=== PATIENT | female | born 1965 | race Caucasian/White ===

== ENCOUNTER 2021-12-20 15:14 | Observation (INO) ==
--- NOTE | 2021-12-20 15:40 | Emergency Department Note ---
Abdominal Pain HPI General Chief Complaint: Abdominal Pain Stated Complaint: Gall Bladder Time Seen by Provider: 12/20/21 15:23 Source: patient Mode of arrival: ambulatory Limitations: no limitations History of Present Illness HPI Narrative: Narrative: 56-year-old female with a history of migraines, hyperlipidemia, heartburn, depression and recent epigastric pain with nausea and vomiting for 3 days presents the ER to be evaluated for cholecystitis. She was seen at the urgent care and had imaging performed and consulted Dr. Peralta who accepted her for evaluation and possible surgery. She is passing through the ER to be evaluated for surgery. She is already have lab work. She denies fever, chills or body aches at this time. Related Data Home Medications Medication Instructions Recorded Confirmed oqieaih-zvqqsenfwygsj-okmxewlu 250 1 tab PO ONCE 08/28/15 10/09/17 mg-250 mg-65 mg tablet (Migraine Relief) ibuprofen 200 mg tablet 800 mg PO ONCE 08/28/15 10/09/17 Previous Rx's Medication Instructions Recorded hydrocodone 5 mg-acetaminophen 325 1 tab PO Q4H PRN sinus headache 05/26/16 mg tablet #20 tabs naproxen sodium 550 mg tablet 550 mg PO BID-TID PRN pain, 09/12/16 dysmenorrhea #30 tabs cetirizine 10 mg capsule (All Day 10 mg PO QDAY #60 caps 10/09/17 Allergy (cetirizine)) losartan 50 mg tablet 50 mg PO QDAY #90 tabs 10/09/17 norethindrone 1.5 mg-ethinyl 1 tab PO QDAY #28 tabs 10/09/17 estradiol 30 mcg(21)/iron 75 mg(7) tablet (June FE 1.5/30 (28)) Allergies Allergy/AdvReac Type Severity Reaction Status Date / Time No Known Drug Allergies Allergy Verified 12/20/21 15:16 Review of Systems ROS ROS Narrative: Narrative: All systems ED: reviewed and negative except as stated. [facility] Narrative Patient History Narrative: Narrative: Medical/Surgical/Family History All Active Problems (Updated 12/20/21 @ 16:11 by Jeremie Little PA-C) Acute cholecystitis (Acute) Change in vision (Acute) Elevated blood pressure (Chronic) Sinusitis (Acute) Otitis media (Chronic) Migraine (Chronic) Indigestion (Chronic) Hyperlipidemia (Chronic) Heart burn (Chronic) Depressive disorder (Chronic) Cerumen impaction (Chronic) Acid reflux (Chronic) Medical History Acid reflux Cerumen impaction Depressive disorder Heart burn Hyperlipidemia Indigestion Migraine Otitis media Sinusitis Surgical History History of hysteroscopy 09/07/14-Dr. Ilia Yeager- [place] Hx of cervical polypectomy 09/07/2014-Dr. Iila Yeager[place] Hx of dilation and curettage 09/07/14-Dr. Ilia Yeager[place] Hx of ovarian cystectomy 09/07/14-Dr. Ilia Yeager[place]-Right Ovarian Family History sister Diabetes mellitus grandmother, paternal Cardiac disease Depression mother , within 9 mos of craniotomy Intracranial tumor Social History Smoking Status: Never smoker Alcohol Intake Frequency: a few times a week Substance Use: does not use Exam Narrative Narrative: Narrative: Gen: No acute distress Eyes: PERRL, no conjunctival injection , and symmetrical lids. Sclerae non icteric HENMT: Normocephalic Atraumatic head, external nose and ears. Moist MM. CVS: +S1/S2, No murmurs or gallops. Radial pulses 2+ and equal bilat. No swelling RESP: Unlabored respiratory effort . Clear to auscultation bilaterally (CTAB). No noted wheezes rales or ronchi. GI: Nontender/Nondistended (NTND), No focal tenderness [place] no epigastric tenderness or Del Real sign during evaluation abdomen completely soft and nontender, no rigidity or guarding Skin: Warm, Dry . No rashes or lesions . Cap refill less than 2. Psych: Awake, Alert, & Oriented (AAO) x3. Appropriate mood and affect . General Limitations: no limitations Course Vital Signs Vital signs: Vital Signs Temperature 98.1 F 12/20/21 15:16 Pulse Rate 98 H 12/20/21 15:16 Respiratory Rate 16 12/20/21 15:16 Blood Pressure 143/98 12/20/21 15:16 Pulse Oximetry (%) 98 12/20/21 15:16 Oxygen Delivery Method 12/20/21 15:16 Temperature 98.1 F 12/20/21 15:16 Pulse Rate 98 H 12/20/21 15:16 Respiratory Rate 16 12/20/21 15:16 Blood Pressure 143/98 12/20/21 15:16 Pulse Oximetry (%) 98 12/20/21 15:16 Oxygen Delivery Method 12/20/21 15:16 MDM MDM Narrative Medical decision making narrative: Narrative: Patient had an unremarkable CBC and CMP at urgent care EKG shows sinus rhythm at a rate of [address] or T wave abnormality to suggest acute ischemia. She has normal chest x-ray. I spoke with Dr. Peralta on the phone who wanted me to place hold orders for her to go to [facility] and be n.p.o. after midnight for surgery tomorrow. He will evaluate her on the inpatient floor. Patient will be admitted at this time for observation. Discharge Plan Patient/Caregiver Discharge Instructions Pt seen by FIRST PRESS OPERATOR/PA only: Yes Clinical Impression: Acute cholecystitis Instructions: Cholecystitis (ED) Patient Disposition: Xfer As Outpt/Obs ([facility]) Follow up with: Daniel Cardoza MD [Primary Care Provider] - Prescriptions: No Action ibuprofen 200 mg tablet 800 mg PO ONCE qnsmqnt-crypvoioaclhy-arsmhdmf [Migraine Relief] 250-250-65 mg tablet 1 tab PO ONCE hydrocodone-acetaminophen 5-325 mg tablet 1 tab PO Q4H PRN (Reason: sinus headache) Qty: 20 0RF naproxen sodium 550 mg tablet 550 mg PO BID-TID PRN (Reason: pain, dysmenorrhea) Qty: 30 3RF Rx Instructions: administer with food or milk norethindrone-e.estradiol-iron [ 1.5/30 (28)] 1.5 mg-30 mcg (21)/75 mg (7) tablet 1 tab PO QDAY Qty: 28 12RF losartan 50 mg tablet 50 mg PO QDAY Qty: 90 3RF cetirizine [All Day Allergy (cetirizine)] 10 mg capsule 10 mg PO QDAY Qty: 60 6RF
--- NOTE | 2021-12-20 15:56 | XRay Report ---
INDICATION: surgery TECHNIQUE: AP chest x-ray COMPARISON: None FINDINGS: Lungs:Lungs are negative. No focal pulmonary parenchymal infiltrate or mass Heart, vascular:No significant cardiomegaly. Pulmonary vascularity is normal. No pulmonary edema or pulmonary congestion Mediastinum, mercy:No mediastinal widening. No hilar mass Pleura:No pleural fluid. No pleural-based mass or calcification Skeletal:Negative. IMPRESSION: Negative AP chest x-ray Interpreted and Authenticated by: Jovon Barton 12/20/21
[2021-12-20] MEDS ORDERED: HYDROmorphone 0.5 MG/0.5 ML SYRINGE IV PRN (16:02)
[2021-12-20] MEDS ORDERED: ONDANSETRON 4 MG/2 ML VIAL IV PRN (16:02)
[2021-12-20] MEDS ORDERED: ACETAMINOPHEN 325 MG TABLET PO PRN (16:02)
[2021-12-20] MEDS: 0.9 % SODIUM CHLORIDE 1,000 ML IV SCH (18:03)
--- NOTE | 2021-12-20 18:41 | General Surg History&Physical ---
HPI History of Present Illness Patient information: Note initiated : 12/20/21 at 6:34 pm Service Date, if different from initiated Date: [] Patient: Gertrudis Walker a 56 y/o F admitted on 12/20/21 for Gall Bladder. Chief Complaint: [] Chief complaint: Cholelithiasis with cholecystitis History of present illness: Ms. Walker is a 56 year old F admitted with cholelithiasis and cholecystitis. The patient has a 4-month history of intermittent upper abdominal pain with primarily right upper quadrant pain radiating through to her back. She has had attacks monthly which usually resolved after a day or so. She has had 4 attacks in the past 4days with associated nausea and vomiting. She finally sought medical attention and had an ultrasound which shows gallstones with a stone impacted in the neck of the gallbladder. She was seen at [facility] and referred here for further evaluation. At this time she has tenderness but no severe pain. She is counseled for cholecystectomy which will be performed tomorrow. Review of Systems All systems: reviewed and no additional remarkable complaints except as stated (Negative except as noted in the history of present illness) PFSH PFSH All Active Problems (Updated 12/20/21 @ 18:40 by Job Peralta MD) Hypertension (Acute) Cholelithiasis and cholecystitis without obstruction (Acute) Acute cholecystitis (Acute) Change in vision (Acute) Elevated blood pressure (Chronic) Sinusitis (Acute) Otitis media (Chronic) Migraine (Chronic) Indigestion (Chronic) Hyperlipidemia (Chronic) Heart burn (Chronic) Depressive disorder (Chronic) Cerumen impaction (Chronic) Acid reflux (Chronic) Medical History Acid reflux Cerumen impaction Depressive disorder Heart burn Hyperlipidemia Indigestion Migraine Otitis media Sinusitis Surgical History History of hysteroscopy 09/07/14-Dr. Ilia Yeager- [place] Hx of cervical polypectomy 09/07/2014-Dr. Ilia Yeager[place] [facility] Hx of dilation and curettage 09/07/14-Dr. Ilia Yeager-[place] Hx of ovarian cystectomy 09/07/14-Dr. Ilia Yeager-[place]-Right Ovarian Family History sister Diabetes mellitus grandmother, paternal Cardiac disease Depression mother , within 9 mos of craniotomy Intracranial tumor Social History (Updated 10/09/17 @ 15:42 by Daniel Cardoza MD) marital status: other: 2 children alcohol intake frequency: a few times a week substance use type: does not use MEDS/ALLERGIES Home Medications and Allergies Home Medications Medication Instructions Recorded Confirmed Type kjyswfe-zhggoprdrlbch-vwqtqmth 250 1 tab PO ONCE 08/28/15 10/09/17 History mg-250 mg-65 mg tablet (Migraine Relief) ibuprofen 200 mg tablet 800 mg PO ONCE 08/28/15 10/09/17 History hydrocodone 5 mg-acetaminophen 325 1 tab PO Q4H PRN sinus headache 05/26/16 10/09/17 Rx mg tablet #20 tabs naproxen sodium 550 mg tablet 550 mg PO BID-TID PRN pain, 09/12/16 10/09/17 Rx dysmenorrhea #30 tabs cetirizine 10 mg capsule (All Day 10 mg PO QDAY #60 caps 10/09/17 10/09/17 Rx Allergy (cetirizine)) losartan 50 mg tablet 50 mg PO QDAY #90 tabs 10/09/17 10/09/17 Rx norethindrone 1.5 mg-ethinyl 1 tab PO QDAY #28 tabs 10/09/17 10/09/17 Rx estradiol 30 mcg(21)/iron 75 mg(7) tablet (Junel FE 1.5/30 (28)) Allergies Allergy/AdvReac Type Severity Reaction Status Date / Time No Known Drug Allergies Allergy Verified 12/20/21 15:16 Physical Examination Vital Signs Vital signs: Temp Pulse Resp BP Pulse Ox O2 Del Method 98.1 F 92 H 16 127/94 91 12/20/21 18:28 12/20/21 18:28 12/20/21 18:28 12/20/21 18:28 12/20/21 18:28 12/20/21 17:32 General physical appearance General physical exam: well developed, well nourished, no distress and moderate pain Eyes Eye exam: PERRL and normal ocular movement ENT ENT exam: normal mucosa Head Head exam IM: Present atraumatic, normal inspection and normocephalic Neck Neck exam: no masses, no bruits, trachea midline, no lymphadenopathy and no venous distension Cardiovascular Cardiovascular exam IM: Present normal rate and rhythm, RRR, +S1 and +S2; Absent gallop or JVD Respiratory Respiratory exam: normal expansion, normal respiratory effort and clear to auscultation Abdomen Abdomen: Present tender (Epigastric and right upper quadrant tenderness) and bowel sounds (Normal bowel sounds); Absent masses Integumentary Integumentary: Present no rash, no growths and no abnormal pigmentation Neurologic Neurologic: Present normal coordination and normal sensation Musculoskeletal Musculoskeletal: Present normal gait and normal posture Psychiatric Psychiatric: Present oriented to time, oriented to person, oriented to place, speech is normal and memory intact Results Labs Labs: All other labs normal. A/P Assessment and plan (1) Cholelithiasis and cholecystitis without obstruction: Status: Acute (2) Hypertension: Status: Acute Plan Patient is counseled for cholecystectomy which will be performed in the morning. She will be n.p.o. after midnight. Zosyn 3.375 g IV every 6 hours Hydromorphone 1 mg IV every 2 hours as needed Promethazine 12.5 mg IV every 4 hours as needed for nausea Time Spent With Patient Time: Total time spent is greater than 50% in coordination of care (as documented) at patient's floor/unit and/or counseling patient:
[2021-12-20 19:35] LABS: Basophils # (Auto) 0.03 K/mcL (0.00-0.30); Basophils % (Auto) 0.3 % (0.0-2.0); Eosinophils # (Auto) 0.15 K/mcL (0.00-0.70); Eosinophils % (Auto) 1.5 % (0.0-7.0); Hematocrit 44.1 % (34.1-44.9); Hemoglobin 14.9 g/dL (11.2-15.7); Lymphocytes % (Auto) 30.9 % (15.5-49.0); Mean Cell Volume 90.7 fL (80.0-100.0); Mean Corpuscular HGB Conc 33.8 g/dL (31.0-36.0); Mean Platelet Volume 8.9 fL (7.4-10.4); Monocytes # (Auto) 0.52 K/mcL (0.10-0.90); Platelet Count 349 K/mcL (140-440); RBC 4.86 M/mcL (3.59-5.38); Red Cell Distribution Width 13.6 % (11.5-14.5); WBC 10.3 K/mcL (4.5-11.0)
[2021-12-20 19:48] LABS: Erythrocyte Sedimentation Rate 26 mm/hr (0-30)
[2021-12-20 20:04] LABS: ALT/SGPT 27 U/L (<40); AST/SGOT 21 U/L (<32); Albumin 4.1 gm/dL (3.2-5.2); Albumin/Globulin Ratio 1.2 (1.0-2.3); Alkaline Phosphatase 59 U/L (39-117); Bilirubin,Direct < 0.2 mg/dL (0-0.3); Bilirubin,Total 0.4 mg/dL (0.1-1.0); Blood Urea Nitrogen 11 mg/dL (6-20); Calcium 9.3 mg/dL (8.6-10.4); Carbon Dioxide 23 mmol/L (22-30); Chloride 99 mmol/L (96-108); Globulin 3.3 gm/dL (2.2-3.7); Glomerular Filtration Rate 83; Glucose 91 mg/dL (70-105); Lactate Dehydrogenase 182 U/L (135-225); Phosphorous 2.6 mg/dL (2.5-4.5); Prothrombin Time 13.1 sec (11.9-14.5); Triglycerides 130 mg/dL (<150); Uric Acid 3.3 mg/dL (2.5-8.0)
[2021-12-20] MEDS: 0.9 % SODIUM CHLORIDE 10 ML SYRINGE IV SCH (20:49)
[2021-12-20] MEDS: DOCUSATE SODIUM 100 MG CAPSULE PO SCH (20:49)
[2021-12-20] MEDS: SENNOSIDES 1 TABLET PO SCH (20:49)
[2021-12-21] MEDS: 0.9 % SODIUM CHLORIDE 1,000 ML IV SCH ×5 (04:10→23:25)
[2021-12-21] MEDS: 0.9 % SODIUM CHLORIDE 10 ML SYRINGE IV SCH ×3 (04:40→20:17)
[2021-12-21] MEDS: DOCUSATE SODIUM 100 MG CAPSULE PO SCH ×2 (08:07→20:17)
[2021-12-21] MEDS ORDERED: ceFAZolin 1 GM VIAL IV SCH (08:45)
[2021-12-21] MEDS ORDERED: ROCURONIUM 10 MG/ML ML IV ONE (08:57)
[2021-12-21] MEDS ORDERED: TRANEXAMIC ACID 1,000 MG/10 ML VIAL ONE (08:57)
[2021-12-21] MEDS ORDERED: HYDROmorphone 1 MG/ML SYRINGE ONE (08:57)
[2021-12-21] MEDS ORDERED: fentaNYL 100 MCG/2 ML VIAL IV ONE (08:57)
[2021-12-21] MEDS ORDERED: MAGNESIUM SULFATE 2 GM/50 ML BAG IV ONE (08:57)
[2021-12-21] MEDS ORDERED: GLYCOPYRROLATE 0.2 MG/ML VIAL IV ONE (08:57)
[2021-12-21] MEDS ORDERED: PHENYLephrine 1 MG/10 ML SYRINGE (ANEST) ONE (08:57)
[2021-12-21] MEDS ORDERED: DEXAMETHASONE 10 MG/ML VIAL ONE (08:57)
[2021-12-21] MEDS ORDERED: ONDANSETRON 4 MG/2 ML VIAL ONE (08:57)
[2021-12-21] MEDS ORDERED: KETAMINE 50 MG/ML Syringe (ANEST) IV ONE (08:57)
[2021-12-21] MEDS ORDERED: SUCCINYLCHOLINE 20 MG/ML ML IV ONE (08:57)
[2021-12-21] MEDS ORDERED: MIDAZOLAM 2 MG/2 ML VIAL ONE (08:57)
[2021-12-21] MEDS ORDERED: PROPOFOL 200 MG/20 ML VIAL IV ONE (08:57)
[2021-12-21] MEDS ORDERED: LIDOCAINE HCL/PF 100 MG/5 ML SYRINGE IV ONE (08:57)
[2021-12-21] MEDS ORDERED: ceFAZolin 1 GM VIAL ONE (08:58)
[2021-12-21] MEDS ORDERED: SCOPOLAMINE 1 PATCH PATCH TOPICAL PRN (09:00)
[2021-12-21] MEDS ORDERED: IPRATROPIUM/ALBUTEROL 3 ML AMPUL.NEB NEB PRN ×3 (09:00→10:46)
[2021-12-21] MEDS ORDERED: ceFAZolin 2 GM in DEXTROSE 5% IN WATER 50 ML IV SCH (09:00)
[2021-12-21] MEDS ORDERED: FLUMAZENIL 0.1 MG/ML ML IV PRN (09:18)
[2021-12-21] MEDS ORDERED: ACETAMINOPHEN 900 MG/90 ML BAG IV ONE (09:18)
[2021-12-21] MEDS ORDERED: ONDANSETRON 4 MG/2 ML VIAL IV PRN (09:18)
[2021-12-21] MEDS ORDERED: MEPERIDINE 25 MG/ML VIAL IV PRN (09:18)
[2021-12-21] MEDS ORDERED: LABETALOL 5 MG/ML ML IV PRN (09:18)
[2021-12-21] MEDS ORDERED: LACTATED RINGERS 250 ML IV PRN (09:18)
[2021-12-21] MEDS ORDERED: METOPROLOL TARTRATE 5 MG/5 ML VIAL IV PRN (09:18)
[2021-12-21] MEDS ORDERED: fentaNYL 100 MCG/2 ML VIAL IV PRN (09:18)
[2021-12-21] MEDS ORDERED: METHOCARBAMOL 1,000 MG/10 ML VIAL IV PRN (09:18)
[2021-12-21] MEDS ORDERED: NALOXONE HCL 0.4 MG/ML VIAL IV PRN (09:18)
[2021-12-21] MEDS ORDERED: LACTATED RINGERS 1,000 ML IV SCH (09:30)
--- NOTE | 2021-12-21 10:34 | Brief Operative Note ---
Brief Operative Note Date of procedure: 12/21/21 Pre-op diagnosis: Acute cholecystitis with cholelithiasis Post-op diagnosis: other (Acute cholecystitis with cholelithiasis) Procedure: Laparoscopic cholecystectomy Grafts/Implants: No (Geoff drain x1) Anesthesia: GETA Findings: Moderately severe acute inflammation of the gallbladder with obstruction of the gallbladder neck and large stone Complications: none Surgeon: Job Peralta Estimated blood loss (cc): 50 Specimens Removed/Pathology: other (Gallbladder) Condition: stable Disposition: PACU
[2021-12-21] MEDS ORDERED: KETOROLAC 15 MG/ML VIAL IV PRN (10:51)
[2021-12-21] MEDS: LOSARTAN 50 MG TABLET PO SCH (15:10)
[2021-12-21] MEDS: ACETAMINOPHEN 900 MG/90 ML BAG IV SCH ×2 (17:02→22:58)
[2021-12-21] MEDS: SENNOSIDES 1 TABLET PO SCH (20:17)
[2021-12-21] MEDS ORDERED: LATANOPROST OPHTH DROPS 2.5ML BOTTLE OU SCH (21:00)
[2021-12-22] MEDS: ACETAMINOPHEN 900 MG/90 ML BAG IV SCH ×3 (05:37→13:00)
[2021-12-22] MEDS: 0.9 % SODIUM CHLORIDE 10 ML SYRINGE IV SCH (05:41)
[2021-12-22 06:33] LABS: Basophils # (Auto) 0.02 K/mcL (0.00-0.30); Basophils % (Auto) 0.2 % (0.0-2.0); Eosinophils # (Auto) 0.01 K/mcL (0.00-0.70); Eosinophils % (Auto) 0.1 % (0.0-7.0); Hematocrit 38.7 % (34.1-44.9); Hemoglobin 11.9 g/dL (11.2-15.7); Lymphocytes # (Auto) 2.22 K/mcL (1.50-4.80); Lymphocytes % (Auto) 16.7 % (15.5-49.0); Mean Cell Volume 97.2 fL (80.0-100.0); Mean Corpuscular HGB Conc 30.7 g/dL (31.0-36.0); Monocytes # (Auto) 0.74 K/mcL (0.10-0.90); Monocytes % (Auto) 5.6 % (1.0-12.0); Platelet Count 325 K/mcL (140-440); RBC 3.98 M/mcL (3.59-5.38); Red Cell Distribution Width 13.6 % (11.5-14.5); WBC 13.3 K/mcL (4.5-11.0)
[2021-12-22 06:53] LABS: ALT/SGPT 68 U/L (<40); AST/SGOT 51 U/L (<32); Albumin 3.1 gm/dL (3.2-5.2); Albumin/Globulin Ratio 1.2 (1.0-2.3); Alkaline Phosphatase 52 U/L (39-117); Bilirubin,Direct < 0.2 mg/dL (0-0.3); Bilirubin,Total 0.4 mg/dL (0.1-1.0); Blood Urea Nitrogen 7 mg/dL (6-20); Calcium 8.1 mg/dL (8.6-10.4); Carbon Dioxide 23 mmol/L (22-30); Chloride 105 mmol/L (96-108); Globulin 2.5 gm/dL (2.2-3.7); Glomerular Filtration Rate 98; Glucose 95 mg/dL (70-105); Lactate Dehydrogenase 179 U/L (135-225); Triglycerides 116 mg/dL (<150)
[2021-12-22] MEDS: DOCUSATE SODIUM 100 MG CAPSULE PO SCH (08:44)
[2021-12-22] MEDS: LOSARTAN 50 MG TABLET PO SCH (08:44)
[2021-12-22] MEDS: 0.9 % SODIUM CHLORIDE 1,000 ML IV SCH (08:45)
[2021-12-22] MEDS ORDERED: LOSARTAN 50 MG TABLET PO SCH (09:00)
[2021-12-22] MEDS ORDERED: oxyCODONE 10 MG TAB.ER.12H PO PRN (09:24)
[2021-12-22] MEDS: oxyCODONE HCL 5 MG TABLET PO PRN ×2 (10:02→13:55)
--- NOTE | 2021-12-22 13:33 | Discharge Summary ---
Discharge Provider Provider IMPORTANT FOLLOW-UP INFORMATION FOR PCP: Patient information: Note initiated : 12/22/21 at 1:28 pm Service Date, if different from initiated Date: [] Patient: Gertrudis Walker 56 y/o F admitted on 12/20/21 for Gall Bladder. Chief Complaint: [] Date of admission: 12/20/21 17:26 Discharge date: 12/22/21 Primary care physician: Daniel Cardoza Admitting clinician: Job Peralta Attending physician on admission: Job Peralta Consults: 12/20/21 Consult to Physician [CONS] Stat Comment: Consulting Provider: Job Peralta Reason For Exam: Physician to Consult Consult to Physician [CONS] Stat Comment: Consulting Provider: Job Peralta Reason For Exam: Physician to Consult Attending physician on discharge: Job Peralta Discharging clinician: Job Peralta COURSE Hospital Course Hospital course: 56-year-old female who was admitted with acute cholecystitis with cholelithiasis. She underwent laparoscopic cholecystectomy on yesterday. She has had an uneventful evening. Her liver panel is basically normal. Electrolytes are normal. White blood count is 13.3 but she is afebrile. Patient is having copious flatus and is tolerating diet without difficulty. She is stable for discharge home. Discharge diagnosis: Cholelithiasis with cholecystitis Secondary discharge diagnosis: Depression Hypertension Reason for admission: Acute cholecystitis with cholelithiasis Procedures: Laparoscopic cholecystectomy Pertinent studies/significant findings: Upper abdominal ultrasound Complications: None Time Spent with Patient Time attestation: Total time spent providing and/or coordinating discharge services: Time spent: Less than 30 minutes Physical Examination Vital Signs Vital signs: Temp Pulse Resp BP Pulse Ox O2 Del Method O2 Flow Rate 98.2 F 62 18 150/80 98 2 12/22/21 08:00 12/22/21 08:00 12/22/21 08:00 12/22/21 08:00 12/22/21 08:00 12/22/21 08:00 12/21/21 12:05 Eyes Eye exam: normal ocular movement; negative icteric ENT ENT exam: no hearing loss and no congestion Head Head exam IM: Present atraumatic, normal inspection and normocephalic Neck Neck exam: no masses, no bruits, trachea midline, no lymphadenopathy and no venous distension Cardiovascular Cardiovascular exam IM: Present normal rate and rhythm, RRR, +S1 and +S2; Absent JVD Respiratory Respiratory exam: normal expansion, normal respiratory effort and clear to auscultation Abdomen Abdomen: Present soft and tender (Mild tenderness around port sites) Integumentary Integumentary: Present no rash, no growths and no abnormal pigmentation Neurologic Neurologic: Present normal coordination and normal sensation Musculoskeletal Musculoskeletal: Present normal gait and normal posture Psychiatric Psychiatric: Present oriented to time, oriented to person, oriented to place, speech is normal and memory intact Discharge Plan Patient/Caregiver Discharge Instructions Activity: increase activity as tolerated Diet: Low Fat Instructions: Cholecystitis (ED) Prescriptions: New oxycodone-acetaminophen [Endocet] 10-325 mg tablet 1 tab PO Q4H PRN (Reason: Pain) Qty: 30 0RF Continued ibuprofen 200 mg tablet 800 mg PO ONCE smfbckv-giyjyhrzccoun-bmlvxltt [Migraine Relief] 250-250-65 mg tablet 1 tab PO ONCE norethindrone-e.estradiol-iron [Junel FE 1.5/30 (28)] 1.5 mg-30 mcg (21)/75 mg (7) tablet 1 tab PO QDAY Qty: 28 12RF losartan 50 mg tablet 50 mg PO QDAY Qty: 90 3RF cetirizine [All Day Allergy (cetirizine)] 10 mg capsule 10 mg PO QDAY Qty: 60 6RF latanoprost 0.005 % Drops 1 drp OPHTHALMIC (EYE) QPM Rx Instructions: 1 drop in each eye Follow Up Plan Follow up with: Daniel Cardoza MD [Primary Care Provider] - Job Peralta MD [Physician] - (Contact office in the morning to get an appointment for 2 weeks) Patient Disposition: Home, Self-Care Prognosis: Good Rehab Potential: Good I certify that the patient requires SNF services: No Overall status at discharge: patient is progressing back to baseline Discharge Orders: Discharge Order (Routine); Ordered 12/22/21 Ordered By: Job Peralta Pending Pending Pending: Resuscitation Status Resuscitate (Full Code) Diet Regular Diet Start Sun Dec 22 0800 Docusate Sodium (Docusate Sodium 100 Mg Capsule) 100 mg PO BID MARCIN Last Admin: 12/22/21 08:44 Dose: 100 mg Documented By: Admin: 12/21/21 20:17 Dose: 100 mg Documented By: Admin: 12/21/21 08:07 Dose: Not Given Documented By: Admin: 12/20/21 20:49 Dose: Not Given Documented By: ELZBIETA Hydromorphone HCl (Hydromorphone 0.5 Mg/0.5 Ml Syringe) 0.5 mg IV Q2HP PRN; Protocol PRN Reason: Per Pain Protocol Last Admin: 12/22/21 03:35 Dose: 0.5 mg Documented By: ELZBIETA Sodium Chloride (Sodium Chloride 0.9%) 1,000 mls @ 100 mls/hr IV .Q10H [facility] Last Admin: 12/22/21 08:45 Dose: Not Given Documented By: Infusion: 12/22/21 04:27 Dose: 100 mls/hr Documented By: Admin: 12/21/21 23:25 Dose: Not Given Documented By: Admin: 12/21/21 18:01 Dose: 100 mls/hr Documented By: Admin: 12/21/21 12:27 Dose: Not Given Documented By: Infusion: 12/21/21 11:41 Dose: 100 mls/hr Documented By: Admin: 12/21/21 04:10 Dose: 100 mls/hr Documented By: Infusion: 12/21/21 04:03 Dose: 100 mls/hr Documented By: Admin: 12/20/21 18:03 Dose: 100 mls/hr Documented By: MIKALA Acetaminophen (Ofirmev) 900 mg in 90 mls @ 180 mls/hr IV Q6H MARCIN Stop: 12/22/21 17:59 Last Admin: 12/22/21 13:00 Dose: 180 mls/hr Documented By: Infusion: 12/22/21 08:45 Dose: 0 mls/hr Documented By: Admin: 12/22/21 05:37 Dose: 180 mls/hr Documented By: Admin: 12/22/21 00:00 Dose: Not Given Documented By: Infusion: 12/21/21 23:33 Dose: 0 mls/hr Documented By: Admin: 12/21/21 22:58 Dose: 180 mls/hr Documented By: Infusion: 12/21/21 17:40 Dose: 0 mls/hr Documented By: Admin: 12/21/21 17:02 Dose: 180 mls/hr Documented By: MIKALA Latanoprost (Latanoprost Ophth Drops 2.5ml Bottle) 1 gtt OU [facility] Last Admin: 12/21/21 20:17 Dose: 1 drop Documented By: ELZBIETA Losartan Potassium (Losartan 50 Mg Tablet) 50 mg PO QDAY [facility] Last Admin: 12/22/21 08:44 Dose: 50 mg Documented By: Admin: 12/21/21 15:10 Dose: 50 mg Documented By: MIKALA Ondansetron HCl (Ondansetron 4 Mg/2 Ml Vial) 4 mg IV Q6HP PRN PRN Reason: Nausea And Vomiting Last Admin: 12/21/21 12:05 Dose: 4 mg Documented By: MIKALA Oxycodone HCl (Oxycodone Hcl 5 Mg Tablet) 5 - 10 mg PO Q4HP PRN; Protocol PRN Reason: Per Pain Protocol Last Admin: 12/22/21 10:02 Dose: 10 mg Documented By: LESLIE Senna (Sennosides 1 Tablet) 2 tab PO [facility] Last Admin: 12/21/21 20:17 Dose: 2 tab Documented By: Admin: 12/20/21 20:49 Dose: Not Given Documented By: ELZBIETA Sodium Chloride (0.9 % Sodium Chloride 10 Ml Syringe) 10 ml IV Q8 [facility] Last Admin: 12/22/21 05:41 Dose: Not Given Documented By: Admin: 12/21/21 20:17 Dose: 10 ml Documented By: Admin: 12/21/21 13:33 Dose: Not Given Documented By: Admin: 12/21/21 04:40 Dose: Not Given Documented By: Admin: 12/20/21 20:49 Dose: Not Given Documented By: ELZBIETA Shift Summary 12/22/21 03:07 Shift Summary by Fallon Hernandez Addendum entered by Fallon Hernandez R.N. 12/22/21 05:43: NANCY Drain output - 35 ml. Hydromorphone 0.5 mg given around 0345 for sharp abdominal pain 02/15 - effective. Original Note: Patient calm and cooperative. Admitted for gallbladder attacks. PMH: HTN, migraines, heartburn, hyperlipidemia. A/Ox4. VSS. PIV L wrist - NS @ 100. Up ad mara. Pain medication Ofirmev scheduled only. C/O bloating, not so much pain. Encouraged to walk this shift. Plan : D/C home today with daughter. Initialized on 12/22/21 03:07 - END OF NOTE
--- NOTE | 2022-01-03 09:08 | Operative Note ---
DATE OF OPERATION: 12/21/2021 DATE OF PROCEDURE: 12/21/2021 PREOPERATIVE DIAGNOSIS: Acute cholecystitis with cholelithiasis. POSTOPERATIVE DIAGNOSIS: Acute cholecystitis with cholelithiasis. PROCEDURE: Laparoscopic cholecystectomy. FINDINGS: Moderately severe inflammation of the gallbladder with obstruction of the gallbladder neck by a large stone. DESCRIPTION OF PROCEDURE: Under general anesthesia, the patient's abdomen was prepped and draped in a sterile field. Supraumbilical midline incision was made. Veress needle was inserted. The abdomen was insufflated with 2 liters of CO2. A 12 mm port was placed. Laparoscope was placed. There was severe inflammation of the gallbladder and it was covered by omentum. Under videoscopic guidance, a 12 mm port and two 5 mm ports were placed in the right subcostal region. Using blunt dissection, the omentum was from the wall of the gallbladder. The gallbladder was aspirated in order to get better grasp for manipulation. Once the gallbladder was adequately positioned, the cystic duct and cystic artery branches were dissected. There was a large stone obstructing the neck of the gallbladder. This was gently milked back into the fundus of the gallbladder and the infundibulum was grasped with a self-retaining grasper. Being satisfied that the duct and the artery were identified, the cystic duct was clipped with five clips and divided. Cystic artery was clipped with four clips on the wall of the gallbladder and divided. Because of the severe inflammation, the gallbladder was dissected bluntly and removed from the bed without difficulty. It was placed in an Endopouch and retrieved. Irrigation was carried out. Hemostasis was achieved. Two sheets of Surgicel was placed in the gallbladder bed. A #10 Geoff drain was placed and brought out through the most lateral incision. CO2 was allowed to escape from the abdomen and the ports were removed. The fascia at the umbilicus was closed with interrupted 0 Vicryl. The drain was secured with 2-0 silk. Skin incisions were closed with annalisa. Tegaderm dressings and a drain sponge were used to cover the incisions. The patient tolerated the procedure well. She was awakened, transferred to a bed, and taken to the postanesthetic care unit in satisfactory condition. LCS:alex Job ID: [id number] Doc ID: [id number] Job Peralta M.D.
== END 2021-12-22 14:10 | disposition home or self-care (01) ==
LOC: MEDSUR 15:14 → ED 15:14 → MEDSUR 17:30
PROVIDERS: ADMIT Family Medicine Adult Medicine; ATTEND Family Medicine Adult Medicine